=== PATIENT | female | born 1995 | race Caucasian/White ===

== ENCOUNTER 2020-07-21 09:17 | Day surgery (SDC) | payer BC ==
[2020-07-21] MEDS ORDERED: hydrALAZINE 20 MG/ML VIAL SLOW IVP PRN (10:36)
== END 2020-07-21 11:00 | disposition home or self-care (01) ==
LOC: CSHLD/OP 09:17
PROVIDERS: ATTEND Obstetrics & Gynecology
DX: O47.03 False labor before 37 completed weeks of gestation, third trimester (principal); O99.891 Other specified diseases and conditions complicating pregnancy; M54.5 Low back pain; O99.613 Diseases of the digestive system complicating pregnancy, third trimester; K59.00 Constipation, unspecified; Z3A.35 35 weeks gestation of pregnancy
CPT/HCPCS: 99282

== ENCOUNTER 2020-08-16 21:41 | Day surgery (SDC) | payer BC ==
[2020-08-16 21:56] VITALS: BMI 24.7
[2020-08-16] MEDS ORDERED: hydrALAZINE 20 MG/ML VIAL SLOW IVP PRN (22:18)
[2020-08-16] MEDS ORDERED: Lactated Ringer's 1,000 ML IV SCH (22:30)
[2020-08-16] MEDS ORDERED: Butorphanol Tartrate 1 MG/ML VIAL SLOW IVP SCH (22:30)
[2020-08-17 16:16] LABS: SARS-CoV-2 PCR by NAA Not Detected (NotDetected)
== END 2020-08-17 00:20 | disposition home or self-care (01) ==
LOC: CSHLD/OP 21:41
PROVIDERS: ATTEND Obstetrics & Gynecology
DX: O47.1 False labor at or after 37 completed weeks of gestation (principal); O32.1XX0 Maternal care for breech presentation, not applicable or unspecified; Z3A.38 38 weeks gestation of pregnancy; Z20.822 Contact with and (suspected) exposure to COVID-19
CPT/HCPCS: 76815; 87635; 96360; 99283; U0003; U0005

== ENCOUNTER 2020-08-17 07:30 | Inpatient (IN) | payer BC ==
[2020-08-20] MEDS ORDERED: Ondansetron PF 4 MG/2 ML Vial IVP PRN ×3 (06:15→13:18)
[2020-08-20] MEDS ORDERED: Lactated Ringer's 1,000 ML IV SCH (06:15)
[2020-08-20] MEDS ORDERED: Promethazine HCl 25 MG/ML VIAL IM PRN ×3 (06:15→13:18)
[2020-08-20] MEDS ORDERED: hydrALAZINE 20 MG/ML VIAL SLOW IVP PRN ×2 (06:15→13:18)
[2020-08-20 06:30] VITALS: BMI 25.0
[2020-08-20] MEDS ORDERED: CEFAZOLIN 2 GM in Premix Bag 1 BAG IVPB SCH (06:30)
[2020-08-20] MEDS ORDERED: Azithromycin 500 MG in Sodium Chloride 0.9% 250 ML 250 ML IVPB SCH (06:30)
[2020-08-20] MEDS ORDERED: Bicitra 30 ML UDCUP PO SCH (06:30)
[2020-08-20 06:41] LABS: Hemoglobin 9.6 g/dL (12.0-15.5); Mean Corpuscular HGB CONC 31.3 g/dL (32.0-36.0); Mean Corpuscular Volume 76.8 fl (81.6-98.3); Mean Platelet Volume 12.3 fl (7.4-10.4); Platelet Count 176 10x3/uL (150-450); RBC Distribution Width 13.8 % (11.5-14.5); White Blood Cell (WBC) Count 10.2 10x3/uL (3.5-10.5)
[2020-08-20] MEDS ORDERED: Ketorolac Tromethamine 15 MG/ML VIAL ONE ×2 (07:18→07:26)
[2020-08-20] MEDS ORDERED: ePHEDrine Sulfate 50 MG/10 ML VIAL ONE (07:18)
[2020-08-20] MEDS ORDERED: Ondansetron PF 4 MG/2 ML Vial ONE (07:19)
[2020-08-20] MEDS ORDERED: Phenylephrine 10 MG/ML VIAL ONE (07:19)
[2020-08-20] MEDS ORDERED: Dexamethasone 4 mg/ml Vial ONE (07:19)
[2020-08-20] MEDS ORDERED: Oxytocin 10 UNITS/ML VIAL ONE (07:19)
[2020-08-20] MEDS ORDERED: Morphine PF 10 MG/10 ML VIAL ONE (07:21)
[2020-08-20 07:32] LABS: Hep B Surf Ag Non-Reactive S/CO (NonReactive); Syphilis Antibody Nonreactive (Nonreactive); Syphilis Antibody Index 0.04 S/CO (<1.00 Non-Reactive)
[2020-08-20 07:37] LABS: HBSAg Index 0.25 S/CO (0-0.99)
[2020-08-20] MEDS ORDERED: Meperidine HCl/PF 25 MG/ML VIAL SLOW IVP PRN (08:45)
[2020-08-20] MEDS ORDERED: Communication Order-Pharmacy FS SCH (08:45)
[2020-08-20] MEDS ORDERED: Eucerin (Mineral Oil/Petrolatum,White) 30 gm Jar TOP PRN (08:45)
[2020-08-20] MEDS ORDERED: Naloxone HCl 0.4 mg/ml Vial IVP PRN ×2 (08:45)
[2020-08-20] MEDS ORDERED: Ketorolac Tromethamine 30 MG/ML VIAL IVP SCH (08:45)
[2020-08-20] MEDS ORDERED: Ondansetron HCl/PF 4 MG/2 ML Vial IVP PRN (08:45)
[2020-08-20] MEDS ORDERED: L&D-Morphine 4 MG/ML VIAL SLOW IVP PRN (08:45)
[2020-08-20] MEDS ORDERED: Promethazine HCl 25 MG SUPP PR PRN (08:45)
[2020-08-20] MEDS ORDERED: diphenhydrAMINE 50 MG/ML VIAL IVP PRN (08:45)
[2020-08-20] MEDS ORDERED: Naloxone HCl 0.4 mg/ml Vial IV PRN (08:45)
[2020-08-20] MEDS ORDERED: HYDROmorphone 2 MG/ML VIAL SLOW IVP PRN (08:45)
[2020-08-20] MEDS ORDERED: Adacel (T-DAP) 0.5 ML SYRINGE IM ONE (13:18)
[2020-08-20] MEDS ORDERED: Simethicone Chewable 80 MG TAB PO PRN (13:18)
[2020-08-20] MEDS ORDERED: Bisacodyl 10 MG SUPP PR PRN (13:18)
[2020-08-20] MEDS ORDERED: NS w/ Oxytocin 30 units 500 ML IV SCH (13:18)
[2020-08-20] MEDS ORDERED: Lanolin Ointment 7 GM TUBE TOP PRN (13:18)
[2020-08-20] MEDS ORDERED: diphenhydrAMINE 25 MG CAP PO PRN (13:18)
[2020-08-20] MEDS: Ketorolac Tromethamine 30 MG/ML VIAL IVP PRN (20:00)
[2020-08-20] MEDS ORDERED: HYDROcodone/Acetaminophen 5/325 mg Tablet PO PRN (20:45)
[2020-08-21] MEDS: Docusate Calcium (SURFAK) 240 MG CAP PO SCH ×4 (04:12→21:19)
[2020-08-21] MEDS: Ferrous Sulfate 325 MG TAB PO SCH ×4 (04:13→21:18)
[2020-08-21] MEDS: Ketorolac Tromethamine 30 MG/ML VIAL IVP PRN (04:17)
[2020-08-21 07:26] LABS: Mean Corpuscular HGB CONC 30.4 g/dL (32.0-36.0); Mean Corpuscular Hemoglobin 23.6 pg (27.0-33.0); Mean Corpuscular Volume 77.7 fl (81.6-98.3); Platelet Count 134 10x3/uL (150-450); RBC Distribution Width 13.9 % (11.5-14.5); Red Blood Cell (RBC) Count 2.96 10x6/uL (3.90-5.03); White Blood Cell (WBC) Count 13.2 10x3/uL (3.5-10.5)
[2020-08-21] MEDS: Prenatal Vitamin 1 TAB PO SCH ×2 (07:56→08:42)
[2020-08-21] MEDS: HYDROcodone/Acetaminophen 5/325 mg Tablet PO PRN (12:58)
[2020-08-21] MEDS: Ibuprofen 800 MG TAB PO SCH ×2 (14:06→21:19)
[2020-08-22] MEDS: Ibuprofen 800 MG TAB PO SCH (06:35)
[2020-08-22] MEDS: Ferrous Sulfate 325 MG TAB PO SCH (08:48)
[2020-08-22] MEDS: Docusate Calcium (SURFAK) 240 MG CAP PO SCH (08:49)
[2020-08-22] MEDS: Prenatal Vitamin 1 TAB PO SCH (08:49)
[2020-08-22 09:22] VITALS: BP 120/76; TEMP 98
[2020-08-22] MEDS: HYDROcodone/Acetaminophen 5/325 mg Tablet PO PRN (13:09)
== END 2020-08-22 13:33 | disposition home or self-care (01) | DRG 788 ==
LOC: CSHLD 08-20 05:35 → CSHPP 08-20 11:05
PROVIDERS: ADMIT Obstetrics & Gynecology; ATTEND Obstetrics & Gynecology
PROC: 10D00Z1 Extraction of Products of Conception, Low, Open Approach (ICD-10-PCS; principal; 2020-08-20)
DX: O32.8XX0 Maternal care for other malpresentation of fetus, not applicable or unspecified (principal); O99.344 Other mental disorders complicating childbirth; F41.9 Anxiety disorder, unspecified; O34.13 Maternal care for benign tumor of corpus uteri, third trimester; D25.9 Leiomyoma of uterus, unspecified; Z20.822 Contact with and (suspected) exposure to COVID-19; O69.81X0 Labor and delivery complicated by cord around neck, without compression, not applicable or unspecified; O99.02 Anemia complicating childbirth; D50.0 Iron deficiency anemia secondary to blood loss (chronic); Z3A.39 39 weeks gestation of pregnancy; Z37.0 Single live birth
CPT/HCPCS: 36415; 51702; 76815; 85027; 86780; 86850; 86900; 86901; 87340; 87635; 96360; 99283; J0690; J1100; J1885; J2274; J2370; J2405; U0003; U0005